=== PATIENT | female | born 1995 ===

== ENCOUNTER 2020-12-14 18:05 | Day surgery (SDC) | payer SELFPAY ==
[2020-12-14 19:16] LABS: SARS-CoV-2 NAA Rapid Test Not Detected (NotDetected)
[2020-12-14] MEDS ORDERED: Succinylcholine 200 MG/10 ml SYRINGE FS ONE (19:41)
[2020-12-14] MEDS ORDERED: Ketorolac Tromethamine 30 MG/ML VIAL ONE (19:41)
[2020-12-14] MEDS ORDERED: Rocuronium Bromide 10 MG/ML (10ML VIAL) ONE (19:41)
[2020-12-14] MEDS ORDERED: Dexamethasone 20 MG/5 ML VIAL ONE (19:41)
[2020-12-14] MEDS ORDERED: Glycopyrrolate 0.2 MG/ML 5 ML SYRINGE ONE (19:41)
[2020-12-14] MEDS ORDERED: Ondansetron PF 4 MG/2 ML Vial ONE (19:41)
[2020-12-14] MEDS ORDERED: Lidocaine 1% PF 5 ML VIAL ONE (19:41)
[2020-12-14] MEDS ORDERED: PROPOFOL 200 MG/20 ML VIAL ONE (19:41)
== END 2020-12-14 21:45 | disposition home or self-care (01) ==
LOC: SJX 18:05
PROVIDERS: ATTEND Specialist
PROC: 0DTJ4ZZ Resection of Appendix, Percutaneous Endoscopic Approach (ICD-10-PCS; principal; 2020-12-14)
DX: K35.80 Unspecified acute appendicitis (principal); Z20.822 Contact with and (suspected) exposure to COVID-19
CPT/HCPCS: 88304; J1100; J1885; J2405; J2704; U0002